=== PATIENT | male | born 1970 | race Caucasian/White ===

== ENCOUNTER 2017-11-06 10:25 | Inpatient (IN) | payer MEDICAID ==
[~2017-11-06] VITALS: Ht 175.3 cm; Wt 76.3 kg
[~2017-11-06 10:25] MED LIST: ARIP15TA2 PO; ARIP400S IM
[2017-11-06 12:36] VITALS: BP 113/62
[2017-11-06] MEDS ORDERED: CYANOCOBALAMIN 1,000 MCG/ML VIAL IM ONE (13:30)
[2017-11-06] MEDS ORDERED: MAG HYDROX/AL HYDROX/SIMETH ES 30 ML SUSPENSION UDCUP PO PRN (13:30)
[2017-11-06] MEDS ORDERED: ZOLPIDEM TARTRATE 10 MG TABLET PO PRN (13:30)
[2017-11-06] MEDS ORDERED: LOPERAMIDE HCL 2 MG CAPSULE PO PRN (13:30)
[2017-11-06] MEDS ORDERED: OLANZapine 5 MG RAPDIS TABLET PO PRN (13:30)
[2017-11-06] MEDS ORDERED: GuaiFENesin/D-METHORPHAN [SUGAR-FREE] 200-20MG/10 ML SYRUP UDCUP PO PRN (13:30)
[2017-11-06] MEDS ORDERED: HydrOXYzine PAMOATE 50 MG CAPSULE PO PRN (13:30)
[2017-11-06] MEDS ORDERED: ACETAMINOPHEN 325 MG TABLET PO PRN (13:30)
[2017-11-06] MEDS ORDERED: MAGNESIUM HYDROXIDE SUSPENSION 30 ML UDCUP PO PRN (13:30)
[2017-11-06] MEDS ORDERED: LORazepam 2 MG TABLET PO PRN (13:30)
[2017-11-06] MEDS ORDERED: PROMETHAZINE HCL 25 MG TABLET PO PRN (13:30)
[2017-11-06] MEDS ORDERED: TUBERCULIN, PURIFIED PROTEIN DERIVATIVE 5 TU/0.1 ML SYG ID ONE (13:30)
[2017-11-06] MEDS ORDERED: DIVA500T35 PO (14:18)
[2017-11-06] MEDS ORDERED: LITH300C3 PO (14:18)
[2017-11-06] MEDS ORDERED: ARIP5TAB8 PO (14:18)
[2017-11-06 17:40] VITALS: BP 106/77
[2017-11-06 18:35] VITALS: BP 106/77
[2017-11-06 18:40] VITALS: BP 110/78
[2017-11-06] MEDS ORDERED: IBUPROFEN 600 MG TABLET PO PRN (18:45)
[2017-11-06] MEDS: THIAMINE HCL 100 MG TABLET PO SCH (18:53)
[2017-11-06 19:40] VITALS: BP 107/68
[2017-11-06 20:40] VITALS: BP 104/64
[2017-11-07 00:40] VITALS: BP 110/62
[2017-11-07 00:55] VITALS: BP 106/67
[2017-11-07 05:40] VITALS: BP 100/61
[2017-11-07] MEDS ORDERED: LORazepam 2 MG TABLET PO PRN (07:00)
[2017-11-07 08:01] LABS: BASOPHILS % (AUTO) 0.6 % (0.0-2.0); EOSINOPHILS % (AUTO) 1.8 % (1.0-6.0); HEMATOCRIT 43.7 % (41-53); HEMOGLOBIN 14.8 g/dL (13.5-17.5); LYMPHOCYTES # (AUTO) 2.2 K/uL (1.0-4.8); LYMPHOCYTES % (AUTO) 31.2 % (22.0-44.0); MEAN CORPUSCULAR HEMOGLOBIN 31.4 pg (26.0-34.0); MEAN CORPUSCULAR HGB CONC 33.8 G/dL (31.0-37.0); MEAN CORPUSCULAR VOLUME 93 fL (80-100); MONOCYTES # (AUTO) 0.5 K/uL (0.1-1.0); MONOCYTES % (AUTO) 6.4 % (2.0-9.0); NEUTROPHILS # (AUTO) 4.2 K/uL (1.8-7.7); PLATELET COUNT (AUTO) 243 K/uL (150-450); RED CELL DISTRIBUTION WIDTH 13.1 % (11.5-14.5)
[2017-11-07 08:18] VITALS: BP 111/67
[2017-11-07 08:33] LABS: HEMOGLOBIN A1C 5.5 % (4.5-6.2)
[2017-11-07] MEDS: ARIPiprazole 10 MG TABLET PO SCH (08:37)
[2017-11-07] MEDS: LORazepam 2 MG TABLET PO SCH ×4 (08:38→21:27)
[2017-11-07] MEDS: NICOTINE 21 MG/24 HOUR PATCH TD SCH (08:38)
[2017-11-07] MEDS: THIAMINE HCL 100 MG TABLET PO SCH ×2 (08:38→16:47)
[2017-11-07] MEDS: FOLIC ACID 1 MG TABLET PO SCH (08:38)
[2017-11-07] MEDS: NALTREXONE HCL 50 MG TABLET PO SCH (08:38)
[2017-11-07] MEDS: MULTIVITAMINS WITH MINERALS, THERAPEUTIC TABLET PO SCH (08:38)
[2017-11-07 09:04] LABS: ALANINE AMINOTRANSFERASE 39 U/L (12-78); ALBUMIN 3.1 g/dL (3.4-5.0); ANION GAP 7 mmol/L (8-16); ASPARTATE AMINOTRANSFERASE 24 U/L (15-37); BILIRUBIN,TOTAL 0.3 mg/dL (0.1-1.0); CALCIUM, TOTAL 8.2 mg/dL (8.8-10.5); CARBON DIOXIDE 28 mmol/L (22-29); CHLORIDE 105 mmol/L (98-107); CREATININE 0.86 mg/dL (0.60-1.30); GLOMERULAR FILTR. RATE CALC > 60 mL/min (>60); POTASSIUM 3.9 mmol/L (3.5-5.1); SODIUM SERUM 140 mmol/L (136-145); THYROID STIMULATING HORMONE 1.06 uIU/mL (0.36-3.74); TOTAL PROTEIN, SERUM 6.5 g/dL (6.4-8.2); UREA NITROGEN, BLOOD 18 mg/dL (7-18)
[2017-11-07 16:00] VITALS: BP 117/78
[2017-11-07 16:40] VITALS: BP 122/68
[2017-11-08 00:53] VITALS: BP 100/70
[2017-11-08 00:54] VITALS: BP 100/70
[2017-11-08] MEDS: THIAMINE HCL 100 MG TABLET PO SCH ×2 (08:40→16:27)
[2017-11-08] MEDS: MULTIVITAMINS WITH MINERALS, THERAPEUTIC TABLET PO SCH (08:40)
[2017-11-08] MEDS: LORazepam 2 MG TABLET PO SCH ×4 (08:40→20:29)
[2017-11-08] MEDS: NALTREXONE HCL 50 MG TABLET PO SCH (08:40)
[2017-11-08] MEDS: ARIPiprazole 10 MG TABLET PO SCH (08:40)
[2017-11-08] MEDS: FOLIC ACID 1 MG TABLET PO SCH (08:41)
[2017-11-08] MEDS: NICOTINE 21 MG/24 HOUR PATCH TD SCH (08:41)
[2017-11-08 09:29] VITALS: BP 107/77
[2017-11-08 12:24] VITALS: BP 107/77
[2017-11-08 16:17] VITALS: BP 109/75
[2017-11-09 01:16] VITALS: BP 118/64
[2017-11-09] MEDS ORDERED: LORazepam 1 MG TABLET PO PRN (07:00)
[2017-11-09 08:00] VITALS: BP 100/76
[2017-11-09] MEDS: ARIPiprazole 10 MG TABLET PO SCH (09:10)
[2017-11-09] MEDS: NICOTINE 21 MG/24 HOUR PATCH TD SCH (09:10)
[2017-11-09] MEDS: THIAMINE HCL 100 MG TABLET PO SCH (09:11)
[2017-11-09] MEDS: LORazepam 1 MG TABLET PO SCH ×2 (09:11→12:13)
[2017-11-09] MEDS: MULTIVITAMINS WITH MINERALS, THERAPEUTIC TABLET PO SCH (09:11)
[2017-11-09] MEDS: NALTREXONE HCL 50 MG TABLET PO SCH (09:11)
[2017-11-09] MEDS: FOLIC ACID 1 MG TABLET PO SCH (09:11)
[2017-11-09 09:24] VITALS: BP 100/76
[2017-11-09] MEDS ORDERED: ARIP10TA8 PO (13:22)
[2017-11-09] MEDS ORDERED: NALT50TA PO (13:22)
[2017-11-09] MEDS ORDERED: LOPERAMIDE HCL 2 MG CAPSULE PO PRN (13:30)
[2017-11-10] MEDS ORDERED: LORazepam 1 MG TABLET PO PRN (07:00)
== END 2017-11-09 14:49 | disposition home or self-care (01) | DRG 750 ==
LOC: B2S 15:41
PROVIDERS: ADMIT Psychiatry & Neurology Psychiatry; ATTEND Psychiatry & Neurology Psychiatry
DX: F25.9 Schizoaffective disorder, unspecified (principal); B19.10 Unspecified viral hepatitis B without hepatic coma; I10 Essential (primary) hypertension; E55.9 Vitamin D deficiency, unspecified; F12.90 Cannabis use, unspecified, uncomplicated; F15.90 Other stimulant use, unspecified, uncomplicated; F17.200 Nicotine dependence, unspecified, uncomplicated; K21.9 Gastro-esophageal reflux disease without esophagitis; Z65.3 Problems related to other legal circumstances; Z91.19 Patient's noncompliance with other medical treatment and regimen; Z91.013 Allergy to seafood
CPT/HCPCS: 83036; 84439; 84443; 86592; J3420

== ENCOUNTER 2018-04-09 12:15 | Inpatient (IN) | payer MEDICAID ==
[~2018-04-09] VITALS: Ht 175.3 cm; Wt 77.8 kg
[~2018-04-09 12:15] MED LIST changes: +ARIP10TA8 PO; -ARIP15TA2 PO; -ARIP400S IM; +NALT50TA PO
[2018-04-09 12:24] VITALS: BP 100/72
[2018-04-09] MEDS ORDERED: LORazepam 2 MG TABLET PO PRN (12:30)
[2018-04-09] MEDS ORDERED: ZOLPIDEM TARTRATE 10 MG TABLET PO PRN (12:30)
[2018-04-09] MEDS ORDERED: OLANZapine 5 MG RAPDIS TABLET PO PRN (12:30)
[2018-04-09] MEDS ORDERED: GuaiFENesin/D-METHORPHAN [SUGAR-FREE] 200-20MG/10 ML SYRUP UDCUP PO PRN (14:15)
[2018-04-09] MEDS ORDERED: ACETAMINOPHEN 325 MG TABLET PO PRN (14:15)
[2018-04-09] MEDS ORDERED: PROMETHAZINE HCL 25 MG TABLET PO PRN (14:15)
[2018-04-09] MEDS ORDERED: MAG HYDROX/AL HYDROX/SIMETH ES 30 ML SUSPENSION UDCUP PO PRN (14:15)
[2018-04-09] MEDS ORDERED: LOPERAMIDE HCL 2 MG CAPSULE PO PRN (14:15)
[2018-04-09] MEDS ORDERED: HydrOXYzine PAMOATE 50 MG CAPSULE PO PRN (14:15)
[2018-04-09 14:42] VITALS: BP 118/78
[2018-04-09 16:06] VITALS: BP 121/70
[2018-04-09] MEDS: ARIPiprazole 10 MG TABLET PO SCH (16:08)
[2018-04-09] MEDS: THIAMINE HCL 100 MG TABLET PO SCH (16:08)
[2018-04-09] MEDS: NALTREXONE HCL 50 MG TABLET PO SCH (16:09)
[2018-04-09 16:13] VITALS: BP 109/69
[2018-04-09] MEDS ORDERED: ARIPiprazole ER SUSPENSION 400 MG PRE-FILLED DUAL CHAMBER SYRINGE IM ONE (21:00)
[2018-04-10 01:45] VITALS: BP 119/69
[2018-04-10 08:33] VITALS: BP 120/79
[2018-04-10 08:34] LABS: BASOPHILS % (AUTO) 0.6 % (0.0-2.0); EOSINOPHILS % (AUTO) 1.4 % (1.0-6.0); HEMATOCRIT 46.6 % (41-53); HEMOGLOBIN 15.9 g/dL (13.5-17.5); LYMPHOCYTES # (AUTO) 1.7 K/uL (1.0-4.8); LYMPHOCYTES % (AUTO) 27.8 % (22.0-44.0); MEAN CORPUSCULAR HEMOGLOBIN 31.3 pg (26.0-34.0); MEAN CORPUSCULAR HGB CONC 34.1 G/dL (31.0-37.0); MEAN CORPUSCULAR VOLUME 92 fL (80-100); MONOCYTES # (AUTO) 0.3 K/uL (0.1-1.0); MONOCYTES % (AUTO) 5.5 % (2.0-9.0); NEUTROPHILS % (AUTO) 64.7 % (40.0-70.0); PLATELET COUNT (AUTO) 212 K/uL (150-450); RED BLOOD CELL COUNT(AUTO) 5.07 MIL/uL (4.50-5.90); RED CELL DISTRIBUTION WIDTH 13.5 % (11.5-14.5)
[2018-04-10] MEDS: ARIPiprazole 10 MG TABLET PO SCH (08:36)
[2018-04-10] MEDS: FOLIC ACID 1 MG TABLET PO SCH (08:36)
[2018-04-10] MEDS: THIAMINE HCL 100 MG TABLET PO SCH ×2 (08:36→17:06)
[2018-04-10] MEDS: NALTREXONE HCL 50 MG TABLET PO SCH (08:36)
[2018-04-10] MEDS: MULTIVITAMINS WITH MINERALS, THERAPEUTIC TABLET PO SCH (08:37)
[2018-04-10 09:23] LABS: ALANINE AMINOTRANSFERASE 43 U/L (12-78); ALBUMIN 3.6 g/dL (3.4-5.0); ALKALINE PHOSPHATASE 104 U/L (46-116); ANION GAP 8 mmol/L (8-16); ASPARTATE AMINOTRANSFERASE 28 U/L (15-37); BILIRUBIN,TOTAL 0.5 mg/dL (0.1-1.0); CALCIUM, TOTAL 8.6 mg/dL (8.8-10.5); CARBON DIOXIDE 28 mmol/L (22-29); CHLORIDE 105 mmol/L (98-107); CREATININE 0.89 mg/dL (0.60-1.30); FREE T4 (FREE THYROXINE) 0.65 ng/dL (0.76-1.46); GLOMERULAR FILTR. RATE CALC > 60 mL/min (>60); GLUCOSE,RANDOM 146 mg/dL (70-110); POTASSIUM 4.4 mmol/L (3.5-5.1); SODIUM SERUM 141 mmol/L (136-145); THYROID STIMULATING HORMONE 0.27 uIU/mL (0.36-3.74); TOTAL PROTEIN, SERUM 6.7 g/dL (6.4-8.2); UREA NITROGEN, BLOOD 14 mg/dL (7-18)
[2018-04-10] MEDS ORDERED: ARIP400S3 IM (14:03)
[2018-04-10 16:13] VITALS: BP 109/62
[2018-04-11 06:37] VITALS: BP 103/70
[2018-04-11] MEDS: FOLIC ACID 1 MG TABLET PO SCH (08:32)
[2018-04-11] MEDS: NALTREXONE HCL 50 MG TABLET PO SCH (08:32)
[2018-04-11] MEDS: MULTIVITAMINS WITH MINERALS, THERAPEUTIC TABLET PO SCH (08:32)
[2018-04-11] MEDS: ARIPiprazole 15 MG TABLET PO SCH (08:32)
[2018-04-11] MEDS: THIAMINE HCL 100 MG TABLET PO SCH ×2 (08:32→16:13)
[2018-04-11 08:34] VITALS: BP 110/78
[2018-04-11 16:21] VITALS: BP 108/72
[2018-04-11] MEDS ORDERED: ARIP15TA2 PO (16:29)
[2018-04-11] MEDS ORDERED: ARIP400S3 IM (16:29)
[2018-04-11] MEDS ORDERED: NALT50TA PO (16:29)
[2018-04-12 00:43] VITALS: BP 103/70
[2018-04-12] MEDS: NALTREXONE HCL 50 MG TABLET PO SCH (08:27)
[2018-04-12] MEDS: FOLIC ACID 1 MG TABLET PO SCH (08:27)
[2018-04-12] MEDS: THIAMINE HCL 100 MG TABLET PO SCH (08:27)
[2018-04-12] MEDS: MULTIVITAMINS WITH MINERALS, THERAPEUTIC TABLET PO SCH (08:27)
[2018-04-12] MEDS: ARIPiprazole 15 MG TABLET PO SCH (08:27)
[2018-04-12 08:39] VITALS: BP 109/66
[2018-04-12] MEDS ORDERED: ARIP15TA2 PO (09:17)
[2018-05-07] MEDS ORDERED: ARIPiprazole ER SUSPENSION 400 MG PRE-FILLED DUAL CHAMBER SYRINGE IM SCH (09:00)
== END 2018-04-12 11:55 | disposition home or self-care (01) | DRG 750 ==
LOC: B2S 12:37
PROVIDERS: ADMIT Psychiatry & Neurology Psychiatry; ATTEND Psychiatry & Neurology Psychiatry
DX: F25.1 Schizoaffective disorder, depressive type (principal); E11.9 Type 2 diabetes mellitus without complications; R45.851 Suicidal ideations; K75.9 Inflammatory liver disease, unspecified; K27.9 Peptic ulcer, site unspecified, unspecified as acute or chronic, without hemorrhage or perforation; I10 Essential (primary) hypertension; E55.9 Vitamin D deficiency, unspecified; F12.90 Cannabis use, unspecified, uncomplicated; F17.200 Nicotine dependence, unspecified, uncomplicated; J45.909 Unspecified asthma, uncomplicated; K21.9 Gastro-esophageal reflux disease without esophagitis; Z91.14 Patient's other noncompliance with medication regimen
CPT/HCPCS: 83036; 84439; 84443; J0401

== ENCOUNTER 2018-10-21 11:48 | Inpatient (IN) | payer MEDICAID ==
[~2018-10-21] VITALS: Ht 175.3 cm; Wt 81.6 kg
[~2018-10-21 11:48] MED LIST changes: -ARIP10TA8 PO; +ARIP15TA2 PO; +ARIP400S3 IM
[2018-10-22] MEDS ORDERED: ZOLPIDEM TARTRATE 10 MG TABLET PO PRN (15:15)
[2018-10-22] MEDS ORDERED: GuaiFENesin/D-METHORPHAN [SUGAR-FREE] 200-20MG/10 ML SYRUP UDCUP PO PRN (15:15)
[2018-10-22] MEDS ORDERED: HydrOXYzine PAMOATE 50 MG CAPSULE PO PRN (15:15)
[2018-10-22] MEDS ORDERED: ACETAMINOPHEN 325 MG TABLET PO PRN (15:15)
[2018-10-22] MEDS ORDERED: MAGNESIUM HYDROXIDE SUSPENSION 30 ML UDCUP PO PRN (15:15)
[2018-10-22] MEDS ORDERED: PROMETHAZINE HCL 25 MG TABLET PO PRN (15:15)
[2018-10-22] MEDS ORDERED: LOPERAMIDE HCL 2 MG CAPSULE PO PRN (15:15)
[2018-10-22] MEDS ORDERED: ARIPiprazole ER SUSPENSION 400 MG PRE-FILLED DUAL CHAMBER SYRINGE IM ONE (15:15)
[2018-10-22] MEDS ORDERED: MAG HYDROX/AL HYDROX/SIMETH ES 30 ML SUSPENSION UDCUP PO PRN (15:15)
[2018-10-22] MEDS ORDERED: QUEtiapine FUMARATE 100 MG TABLET PO PRN (15:15)
[2018-10-22 15:22] VITALS: BP 130/82
[2018-10-22 16:51] VITALS: BP 121/90
[2018-10-22] MEDS: LORazepam 2 MG TABLET PO PRN (16:53)
[2018-10-22] MEDS: THIAMINE HCL 100 MG TABLET PO SCH (16:53)
[2018-10-23] MEDS: LORazepam 2 MG TABLET PO PRN (02:45)
[2018-10-23 04:02] VITALS: BP 114/66
[2018-10-23] MEDS: ARIPiprazole 15 MG TABLET PO SCH (08:02)
[2018-10-23] MEDS: NALTREXONE HCL 50 MG TABLET PO SCH (08:02)
[2018-10-23] MEDS: MULTIVITAMINS WITH MINERALS, THERAPEUTIC TABLET PO SCH (08:02)
[2018-10-23] MEDS: FOLIC ACID 1 MG TABLET PO SCH (08:02)
[2018-10-23] MEDS: THIAMINE HCL 100 MG TABLET PO SCH ×2 (08:02→16:54)
[2018-10-23 08:21] LABS: BASOPHILS % (AUTO) 0.4 % (0.0-2.0); EOSINOPHILS % (AUTO) 1.8 % (1.0-6.0); HEMATOCRIT 47.2 % (41-53); HEMOGLOBIN 16.3 g/dL (13.5-17.5); LYMPHOCYTES # (AUTO) 1.9 K/uL (1.0-4.8); LYMPHOCYTES % (AUTO) 20.2 % (22.0-44.0); MEAN CORPUSCULAR HEMOGLOBIN 31.7 pg (26.0-34.0); MEAN CORPUSCULAR HGB CONC 34.5 G/dL (31.0-37.0); MEAN CORPUSCULAR VOLUME 92 fL (80-100); MONOCYTES # (AUTO) 0.6 K/uL (0.1-1.0); MONOCYTES % (AUTO) 6.5 % (2.0-9.0); NEUTROPHILS # (AUTO) 6.5 K/uL (1.8-7.7); NEUTROPHILS % (AUTO) 71.1 % (40.0-70.0); PLATELET COUNT (AUTO) 231 K/uL (150-450); RED BLOOD CELL COUNT(AUTO) 5.14 MIL/uL (4.50-5.90)
[2018-10-23 08:24] VITALS: BP 113/60
[2018-10-23 08:29] LABS: HEMOGLOBIN A1C 5.7 % (4.5-6.2)
[2018-10-23 08:31] LABS: ALANINE AMINOTRANSFERASE 38 U/L (12-78); ALBUMIN 3.4 g/dL (3.4-5.0); ALKALINE PHOSPHATASE 98 U/L (46-116); ANION GAP 4 mmol/L (8-16); ASPARTATE AMINOTRANSFERASE 24 U/L (15-37); BILIRUBIN,TOTAL 0.7 mg/dL (0.1-1.0); CALCIUM, TOTAL 8.2 mg/dL (8.8-10.5); CARBON DIOXIDE 31 mmol/L (22-29); CHLORIDE 104 mmol/L (98-107); CHOL/HDL RATIO 4.2 (4.2-7.3); CHOLESTEROL 157 mg/dL (131-200); GLOMERULAR FILTR. RATE CALC > 60 mL/min (>60); GLUCOSE,RANDOM 84 mg/dL (70-110); HDL CHOLESTEROL 37 mg/dL (40-60); LDL CHOL (CALC.) 107 mg/dL (0-130); POTASSIUM 4.4 mmol/L (3.5-5.1); SODIUM SERUM 139 mmol/L (136-145); TOTAL PROTEIN, SERUM 6.8 g/dL (6.4-8.2); TRIGLYCERIDES 67 mg/dL (15-150); UREA NITROGEN, BLOOD 15 mg/dL (7-18)
[2018-10-23] MEDS ORDERED: ACETAMINOPHEN 325 MG TABLET PO PRN (12:30)
[2018-10-23] MEDS ORDERED: IBUPROFEN 400 MG TABLET PO PRN (12:30)
[2018-10-23 16:40] VITALS: BP 132/77
[2018-10-24 04:37] VITALS: BP 148/81
[2018-10-24 08:14] VITALS: BP 118/82
[2018-10-24] MEDS: THIAMINE HCL 100 MG TABLET PO SCH (09:13)
[2018-10-24] MEDS: NALTREXONE HCL 50 MG TABLET PO SCH (09:13)
[2018-10-24] MEDS: MULTIVITAMINS WITH MINERALS, THERAPEUTIC TABLET PO SCH (09:13)
[2018-10-24] MEDS: ARIPiprazole 15 MG TABLET PO SCH (09:13)
[2018-10-24] MEDS: FOLIC ACID 1 MG TABLET PO SCH (09:13)
[2018-11-19] MEDS ORDERED: ARIPiprazole ER SUSPENSION 400 MG PRE-FILLED DUAL CHAMBER SYRINGE IM SCH (09:00)
== END 2018-10-24 15:00 | disposition left against medical advice (07) | DRG 750 ==
LOC: B2S 10-22 15:30
PROVIDERS: ADMIT Psychiatry & Neurology Psychiatry; ATTEND Psychiatry & Neurology Psychiatry
DX: F25.9 Schizoaffective disorder, unspecified (principal); Z91.14 Patient's other noncompliance with medication regimen; E55.9 Vitamin D deficiency, unspecified; F12.90 Cannabis use, unspecified, uncomplicated; F15.90 Other stimulant use, unspecified, uncomplicated; K21.9 Gastro-esophageal reflux disease without esophagitis; F17.200 Nicotine dependence, unspecified, uncomplicated; Z72.89 Other problems related to lifestyle; Z91.013 Allergy to seafood
CPT/HCPCS: 70450; 83036; 86592; 90686; J0401